=== PATIENT | female | born 1985 | race Caucasian/White ===

== ENCOUNTER 2022-11-29 14:58 | Inpatient (IN) | payer BC ==
[~2022-11-29] VITALS: Ht 162.6 cm; Wt 71.0 kg
[2022-11-29 15:04] VITALS: BP_SYST 143
[2022-11-29] MEDS ORDERED: GADOTERATE MEGLUMINE 7.5 MMOL/15 ML VIAL IV ONE (17:19)
[2022-11-29] MEDS ORDERED: iohexoL 350 mgI/mL, 100 ML INFUS..BTL IV ONE (17:21)
[2022-11-29 17:28] LABS: BASOPHILS # (AUTO) 0.1 K/uL (0.0-0.2); BASOPHILS % (AUTO) 1.5 % (0.0-2.0); EOSINOPHILS # (AUTO) 0.1 K/uL (0.0-0.4); EOSINOPHILS % (AUTO) 1.2 % (0.0-4.0); HEMATOCRIT 41.7 % (36-48); HEMOGLOBIN 14.3 g/dL (12.0-16.0); LYMPHOCYTES # (AUTO) 2.5 K/uL (1.0-5.5); LYMPHOCYTES % (AUTO) 32.9 % (20.5-51.5); MEAN CORPUSCULAR HEMOGLOBIN 31 pg (27-31); MEAN CORPUSCULAR HGB CONC 34 % (32-36); MEAN CORPUSCULAR VOLUME 91 fL (79.0-98.0); MONOCYTES # (AUTO) 0.7 K/uL (0.0-1.0); MONOCYTES % (AUTO) 8.5 % (1.7-9.3); NEUTROPHILS # (AUTO) 4.3 K/uL (1.8-7.7); NEUTROPHILS % (AUTO) 55.9 % (40.0-70.0); PLATELET COUNT (AUTO) 292 K/uL (130-430); RED BLOOD CELL COUNT(AUTO) 4.58 MIL/uL (4.2-6.2); WHITE BLOOD COUNT (AUTO) 7.6 K/uL (4.8-10.8)
[2022-11-29] MEDS ORDERED: NACL 0.9% 1,000 ML IV ONE (17:30)
[2022-11-29 17:40] LABS: BILIRUBIN,URINE NEGATIVE (NEGATIVE); BLOOD, URINE NEGATIVE (NEGATIVE); CLARITY/URINE CLEAR (CLEAR); COLOR,URINE YELLOW (YELLOW); GLUCOSE,URINE NEGATIVE (NEGATIVE); KETONES,URINE NEGATIVE (NEGATIVE); LEUKOCYTE ESTERASE ,URINE NEGATIVE (NEGATIVE); NITRITE, URINE NEGATIVE (NEGATIVE); PH,URINE 6.5 (5.0-8.0); PROTEIN URINE NEGATIVE (NEGATIVE); UROBILINOGEN,URINE 0.2 (0.2-1.0)
[2022-11-29 18:37] LABS: ALANINE AMINOTRANSFERASE 25 U/L (12-78); ALBUMIN 4.7 g/dL (3.4-4.8); ANION GAP 12 (5-15); ASPARTATE AMINOTRANSFERASE 19 U/L (10-37); CALCIUM 9.6 mg/dL (8.4-11.0); CHLORIDE 103 mmol/L (98-107); CREATININE 0.52 mg/dL (0.55-1.30); GLUCOSE 95 mg/dL (70-99); TOTAL BILIRUBIN 0.4 mg/dL (0.0-1.0); UREA NITROGEN, BLOOD 12 mg/dL (8-21)
[2022-11-29 18:38] LABS: GFR AFRICAN AMERICAN 169 mL/min (>90)
[2022-11-29] MEDS ORDERED: KETOROLAC TROMETHAMINE 30 MG VIAL IVP ONE (18:45)
[2022-11-29] MEDS ORDERED: ASPIRIN 81 MG TAB.CHEW PO ONE (18:45)
[2022-11-29] MEDS ORDERED: MAG HYDROX/AL HYDROX/SIMETH 30 ML, DICYCLOMINE HCL 20 MG, LIDOCAINE VISCOUS 2% 15ML (PO... PO ONE ×3 (20:45)
[2022-11-29 22:28] VITALS: BP_SYST 121
[2022-11-30] MEDS ORDERED: CYCL10TA24 PO (00:43)
[2022-11-30] MEDS ORDERED: ACETAMINOPHEN 325 MG TABLET PO PRN (00:45)
[2022-11-30] MEDS: HYDROcodone/ACETAMIN 5-325 MG TAB (NORCO/ VICODIN) PO PRN ×3 (01:12→21:29)
[2022-11-30] MEDS: D5/0.45 NS 1,000 ML IV SCH ×3 (01:13→13:11)
[2022-11-30 03:27] LABS: BASOPHILS # (AUTO) 0.1 K/uL (0.0-0.2); BASOPHILS % (AUTO) 2.5 % (0.0-2.0); EOSINOPHILS # (AUTO) 0.1 K/uL (0.0-0.4); EOSINOPHILS % (AUTO) 2.1 % (0.0-4.0); LYMPHOCYTES # (AUTO) 2.7 K/uL (1.0-5.5); LYMPHOCYTES % (AUTO) 46.1 % (20.5-51.5); MEAN CORPUSCULAR HEMOGLOBIN 31 pg (27-31); MEAN CORPUSCULAR HGB CONC 34 % (32-36); MEAN CORPUSCULAR VOLUME 91 fL (79.0-98.0); MONOCYTES # (AUTO) 0.7 K/uL (0.0-1.0); MONOCYTES % (AUTO) 11.7 % (1.7-9.3); NEUTROPHILS # (AUTO) 2.2 K/uL (1.8-7.7); NEUTROPHILS % (AUTO) 37.6 % (40.0-70.0); PLATELET COUNT (AUTO) 266 K/uL (130-430); RED BLOOD CELL COUNT(AUTO) 4.17 MIL/uL (4.2-6.2); WHITE BLOOD COUNT (AUTO) 5.7 K/uL (4.8-10.8)
[2022-11-30 03:47] LABS: ALBUMIN 3.8 g/dL (3.4-4.8); CALCIUM 8.9 mg/dL (8.4-11.0); CREATININE 0.56 mg/dL (0.55-1.30); TOTAL BILIRUBIN 0.5 mg/dL (0.0-1.0)
[2022-11-30 05:55] VITALS: BP_SYST 116
[2022-11-30 11:23] VITALS: BP_SYST 101
[2022-11-30 12:00] VITALS: BP_SYST 98
[2022-11-30] MEDS ORDERED: GADOTERATE MEGLUMINE 7.5 MMOL/15 ML VIAL IV ONE (13:39)
[2022-11-30 15:50] VITALS: BP_SYST 98
[2022-11-30 16:00] VITALS: BP_SYST 100
[2022-11-30 20:00] VITALS: BP_SYST 117
[2022-12-01 00:34] VITALS: BP_SYST 99
[2022-12-01] MEDS: D5/0.45 NS 1,000 ML IV SCH (05:02)
[2022-12-01 05:40] VITALS: BP_SYST 103
[2022-12-01] MEDS: HYDROcodone/ACETAMIN 5-325 MG TAB (NORCO/ VICODIN) PO PRN ×3 (06:13→20:58)
[2022-12-01] MEDS ORDERED: TAMSULOSIN HCL 0.4 MG CAP PO ONE (09:00)
[2022-12-01 11:47] VITALS: BP_SYST 92
[2022-12-01 12:36] LABS: CALCIUM 9.2 mg/dL (8.4-11.0); CREATININE 0.53 mg/dL (0.55-1.30)
[2022-12-01 12:43] LABS: ALBUMIN 3.9 g/dL (3.4-4.8); TOTAL BILIRUBIN 0.5 mg/dL (0.0-1.0)
[2022-12-01] MEDS: LIDOCAINE TOPICAL OINT 5%, 35 GM TP PRN ×2 (13:33→21:03)
[2022-12-01 15:28] VITALS: BP_SYST 98
[2022-12-01 16:00] VITALS: BP_SYST 142
[2022-12-02] VITALS: BP_SYST 97
[2022-12-02] MEDS ORDERED: IBUPROFEN 600 MG TABLET PO ONE
[2022-12-02 00:51] VITALS: BP_SYST 97
[2022-12-02 08:00] VITALS: BP_SYST 113
[2022-12-02] MEDS ORDERED: TAMSULOSIN HCL 0.4 MG CAP PO SCH (09:00)
[2022-12-02 11:35] VITALS: BP_SYST 103
[2022-12-02] MEDS: LIDOCAINE TOPICAL OINT 5%, 35 GM TP PRN (12:37)
[2022-12-02] MEDS: HYDROcodone/ACETAMIN 5-325 MG TAB (NORCO/ VICODIN) PO PRN ×2 (12:43→21:16)
[2022-12-02] MEDS ORDERED: TAMS0.4C96 PO (14:52)
[2022-12-02 15:48] VITALS: BP_SYST 92
[2022-12-02] MEDS: D5/0.45 NS 1,000 ML IV SCH ×2 (19:25→21:17)
[2022-12-02 20:00] VITALS: BP_SYST 106
[2022-12-03 00:52] VITALS: BP_SYST 94
[2022-12-03 06:47] VITALS: BP_SYST 94
[2022-12-03 16:57] VITALS: BP_SYST 101
== END 2022-12-03 07:00 | disposition home or self-care (01) | DRG 206 ==
LOC: SED 14:58 → STU 20:01 → SMU 12-03 04:56
PROVIDERS: ADMIT Internal Medicine; ATTEND Internal Medicine
DX: M94.0 Chondrocostal junction syndrome [Tietze] (principal); N20.1 Calculus of ureter; R65.10 Systemic inflammatory response syndrome (SIRS) of non-infectious origin without acute organ dysfunction; K80.20 Calculus of gallbladder without cholecystitis without obstruction; G89.29 Other chronic pain; M54.9 Dorsalgia, unspecified; R77.8 Other specified abnormalities of plasma proteins; Z20.822 Contact with and (suspected) exposure to COVID-19; Z90.710 Acquired absence of both cervix and uterus
CPT/HCPCS: 36415; 70450-TC; 70496; 70498; 71045; 72142; 76376; 76700-TC; 80053; 81003; 83690; 83735; 83880; 84484; 85025; 85379; 93005; 93306; 99285; A9575; G0378; J1885; J2001; Q9967

== ENCOUNTER 2024-01-15 12:37 | Emergency (ER) | payer BC ==
[~2024-01-15] VITALS: Ht 162.6 cm; Wt 72.6 kg
[~2024-01-15 12:37] MED LIST: CYCL10TA24 PO; TAMS0.4C96 PO
[2024-01-15 12:51] VITALS: BP_SYST 128; PULSE 98; RESP 18; TEMP 97.8; O2SAT 99
[2024-01-15 13:11] LABS: BASOPHILS # (AUTO) 0.2 K/uL (0.0-0.2); BASOPHILS % (AUTO) 1.3 % (0.0-2.0); EOSINOPHILS # (AUTO) 0.1 K/uL (0.0-0.4); EOSINOPHILS % (AUTO) 1.1 % (0.0-4.0); HEMATOCRIT 40.6 % (36-48); HEMOGLOBIN 14.1 g/dL (12.0-16.0); LYMPHOCYTES # (AUTO) 2.1 K/uL (1.0-5.5); LYMPHOCYTES % (AUTO) 17.2 % (20.5-51.5); MEAN CORPUSCULAR HEMOGLOBIN 31 pg (27-31); MEAN CORPUSCULAR HGB CONC 35 % (32-36); MEAN CORPUSCULAR VOLUME 90 fL (79.0-98.0); MONOCYTES % (AUTO) 8.3 % (1.7-9.3); NEUTROPHILS # (AUTO) 8.7 K/uL (1.8-7.7); NEUTROPHILS % (AUTO) 72.1 % (40.0-70.0); PLATELET COUNT (AUTO) 287 K/uL (130-430); RED BLOOD CELL COUNT(AUTO) 4.51 MIL/uL (4.2-6.2); RED CELL DISTRIBUTION WIDTH 12.5 % (9.0-15.0)
[2024-01-15 13:22] LABS: CALCIUM 8.9 mg/dL (8.4-11.0); CREATININE 0.65 mg/dL (0.55-1.30); POTASSIUM 3.8 mmol/L (3.5-5.1)
[2024-01-15 13:27] LABS: ALBUMIN 4.1 g/dL (3.4-4.8); TOTAL BILIRUBIN 0.5 mg/dL (0.0-1.0); TOTAL PROTEIN, SERUM 8.3 g/dL (6.4-8.3)
[2024-01-15] MEDS: KETOROLAC TROMETHAMINE 30 MG VIAL IVP ONE (13:43)
[2024-01-15 13:49] LABS: BILIRUBIN,DIRECT 0.1 mg/dL (0.0-0.3)
[2024-01-15 13:53] LABS: BILIRUBIN,URINE NEGATIVE (NEGATIVE); BLOOD, URINE 3+ (NEGATIVE); CLARITY/URINE CLEAR (CLEAR); COLOR,URINE YELLOW (YELLOW); GLUCOSE,URINE NEGATIVE (NEGATIVE); KETONES,URINE NEGATIVE (NEGATIVE); LEUKOCYTE ESTERASE ,URINE 1+ (NEGATIVE); NITRITE, URINE POSITIVE (NEGATIVE); PROTEIN URINE NEGATIVE (NEGATIVE); UROBILINOGEN,URINE 0.2 (0.2-1.0)
[2024-01-15 14:14] LABS: BACTERIA,URINE MANY /HPF (None Seen); MUCUS,URINE 1+ /LPF (None Seen); RBC,URINE 20-50 /HPF (0-3); WBC,URINE 80-100 /HPF (0-3)
[2024-01-15] MEDS ORDERED: ACET-2634 PO (14:29)
[2024-01-15] MEDS ORDERED: SULF1TAB48 PO (14:29)
[2024-01-15] MEDS ORDERED: cefTRIAXone 1 GM IVPB PREMIX 50 ML IV ONE (15:11)
[2024-01-15] MEDS: cefTRIAXone 1 GM in D5W 50 ML IV ONE (15:15)
[2024-01-15 16:10] VITALS: BP_SYST 122; PULSE 83; RESP 16; TEMP 97.5; O2SAT 99
== END 2024-01-15 16:10 | disposition home or self-care (01) ==
LOC: SED 12:37
DX: N12 Tubulo-interstitial nephritis, not specified as acute or chronic (principal); R10.9 Unspecified abdominal pain; Z79.899 Other long term (current) drug therapy
CPT/HCPCS: 99285; 74176; 96365; 96375; 80076; 80048; 81001; 83690; 85025; 87040; 87086; 87186; 36415; 81000; 81015; J0696; J1885